=== PATIENT | female | born 1940 | race Caucasian/White ===

== ENCOUNTER 2025-03-03 14:00 | Outpatient (RCR) | payer MEDICARE, SELFPAY ==
--- NOTE | 2024-12-07 08:39 | OPREHPOC ---
Outpatient Therapy Plan of Care This is a Multidisciplinary Plan of Care that may contain components documented by all disciplines (PT, OT, and ST.) PT Problem 1 PT Problem #1 Knowledge Deficit PT Goal 1 Goal / Goal Update 1. Pt to be IND with issued HEP. Target Visit 10 PT Problem 2 PT Problem #2 Impaired Range of Motion PT Goal 1 Goal / Goal Update 1. Pt to demonstrate hip extension to 10 deg to improve stride length. Target Visit 10 PT Problem 3 PT Problem #3 Impaired Gait PT Goal 1 Goal / Goal Update 1. Pt to improve 2 min walk distance from 90ft to 250ft. 2. Pt to ambulate on level ground without AD. 3. Pt to ambulate 5 steps with single UE support to be able to enter her home IND. Target Visit 10 PT Problem 4 PT Problem #4 Impaired Strength PT Goal 1 Goal / Goal Update 1. Pt to improve global hip strength to 4+/5 Target Visit 10
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
--- NOTE | 2024-12-21 10:43 | PCPTNOTE ---
Patient was canceled this date due to therapist being out of clinic with illness.
--- NOTE | 2024-12-23 09:06 | PCPTNOTE ---
Patient canceled this date due to falling and wanting to heal.
--- NOTE | 2025-01-05 10:09 | OPREHPOC ---
Outpatient Therapy Plan of Care This is a Multidisciplinary Plan of Care that may contain components documented by all disciplines (PT, OT, and ST.) PT Problem 1 PT Problem #1 Knowledge Deficit PT Goal 1 Goal / Goal Update 1. Pt to be IND with issued HEP. 01/05/25: 1. met Target Visit 10 Progress Met PT Problem 2 PT Problem #2 Impaired Range of Motion PT Goal 1 Goal / Goal Update 1. Pt to demonstrate hip extension to 10 deg to improve stride length. 01/05/25: 1. progressing to 0 deg Target Visit 10 Progress Partially Met PT Problem 3 PT Problem #3 Impaired Gait PT Goal 1 Goal / Goal Update 1. Pt to improve 2 min walk distance from 90ft to 250ft. 2. Pt to ambulate on level ground without AD. 3. Pt to ambulate 5 steps with single UE support to be able to enter her home IND. 01/05/25: 1. progressing to 200ft 2. not progressing 3. progressing Target Visit 10 Progress Partially Met PT Problem 4 PT Problem #4 Impaired Strength PT Goal 1 Goal / Goal Update 1. Pt to improve global hip strength to 4+/5 01/05/25: 1. progressing Target Visit 10
--- NOTE | 2025-01-05 10:09 | PTOPPROG ---
Assessment and note entered by Evelina Wilson, PT, DPT Evaluation Information Assessment Status Progress Diagnosis L below knee amputation ICD-10 Condition Codes (PT) Difficulty Walking R26.2,Abnormalities of gait and mobility R26.9,Encounter for other orthopedic aftercare Z47.89 Other ICD-10 Condition Codes ( Z89.512 PT) Onset 05/13/24 Subjective Information Pt has recently received cortisone injections in both of her knees, her pain has limited how much she can tolerate in standing while in therapy. Pain has limited her standing and walking tolerance overall. She had one fall while getting in and out of the shower without injury. Assessment PT Clinical Summary Pt presents to therapy today for her progress report following 8 visits of skilled therapy a traumatic L BKA. Her therapy progress up to this point has been limited by severe rodrigo knee pain, pt just received injections to aid with pain management. She demonstrates improved hip flexor ROM and hip flexion strength but ROM and strength are still decreased from expected. She has been able to progress her wear time but is not up to a full days worth of wear yet. Continuation of skilled therapy services are indicated to address the deficits noted above, for gait and stair training, and to progress to functional independence. Plan of Care Interventions Check Out for Orthotic/Prosthetic,Electrical Stimulation,Gait Training,Manual Therapy,Neuro Re- education,Patient/Caregiver Education,Prosthetic Training,Therapeutic Activities,Therapeutic Exercise PT Services Indicated Yes Treatment Frequency and 2x/wk for 10 visits Duration These treatments will address the objective and functional deficits as defined above. The patient will be advanced safely and appropriately in order for the patient to progress towards his/her prior level of function. Additional exercises will be introduced and as well as a comprehensive home exercise program upon discharge, if needed, ?to ensure carryover of functional gains achieved in the clinic. This treatment plan has been reviewed and agreement upon by the patient.
--- NOTE | 2025-02-08 10:01 | PCPTNOTE ---
Patient called to cancel due to her being ill.
--- NOTE | 2025-02-10 09:53 | PCPTNOTE ---
Patient called and cancelled this date due to her being ill. She is unable to drive.
--- NOTE | 2025-02-15 11:11 | OPREHPOC ---
Outpatient Therapy Plan of Care This is a Multidisciplinary Plan of Care that may contain components documented by all disciplines (PT, OT, and ST.) PT Problem 1 PT Problem #1 Knowledge Deficit PT Goal 1 Goal / Goal Update 1. Pt to be IND with issued HEP. 01/05/25: 1. met 02/15/25: 1. met Target Visit 10 Progress Met PT Problem 2 PT Problem #2 Impaired Range of Motion PT Goal 1 Goal / Goal Update 1. Pt to demonstrate hip extension to 10 deg to improve stride length. 01/05/25: 1. progressing to 0 deg 02/15/25: 1. progressing to 5 deg Target Visit 10 Progress Partially Met PT Problem 3 PT Problem #3 Impaired Gait PT Goal 1 Goal / Goal Update 1. Pt to improve 2 min walk distance from 90ft to 250ft. 2. Pt to ambulate on level ground without AD. 3. Pt to ambulate 5 steps with single UE support to be able to enter her home IND. 01/05/25: 1. progressing to 200ft 2. not progressing 3. progressing 02/15/25: 1. progressing to 215ft 2. progressing 3. progressing Target Visit 10 Progress Partially Met PT Problem 4 PT Problem #4 Impaired Strength PT Goal 1 Goal / Goal Update 1. Pt to improve global hip strength to 4+/5 01/05/25: 1. progressing 02/15/25: 1. progressing Target Visit 10
--- NOTE | 2025-02-15 11:12 | PTOPPROG ---
Assessment and note entered by Evelina Wilson, PT, DPT Evaluation Information Assessment Status Progress Diagnosis L below knee amputation ICD-10 Condition Codes (PT) Difficulty Walking R26.2,Abnormalities of gait and mobility R26.9,Encounter for other orthopedic aftercare Z47.89 Other ICD-10 Condition Codes ( Z89.512 PT) Onset 05/13/24 Subjective Information Pt states she feels like she had a set back. Does not feel like her prothesis fits properly. Is also getting a bruise on her L knee. Has not been using an AD around her home for the last week. Assessment PT Clinical Summary Pt presents to therapy today for her progress report following 15 visits of skilled therapy to treat the deficits related to a traumatic L BKA. She demonstrates improved hip flexor ROM and hip flexion strength and glute strength is still decreased from expected. She has been able to wear her prosthesis all day and at times is ambulating without an AD. Continuation of skilled therapy services are indicated to address the deficits noted above, for gait and stair training, to improve hip strength, and to progress to functional independence. Plan of Care Interventions Check Out for Orthotic/Prosthetic,Electrical Stimulation,Gait Training,Manual Therapy,Neuro Re- education,Patient/Caregiver Education,Prosthetic Training,Therapeutic Activities,Therapeutic Exercise PT Services Indicated Yes Treatment Frequency and 2x/wk for 8 visits Duration These treatments will address the objective and functional deficits as defined above. The patient will be advanced safely and appropriately in order for the patient to progress towards his/her prior level of function. Additional exercises will be introduced and as well as a comprehensive home exercise program upon discharge, if needed, ?to ensure carryover of functional gains achieved in the clinic. This treatment plan has been reviewed and agreement upon by the patient.
== END 2025-03-06 23:59 | disposition home or self-care (01) ==
LOC: ANHGOSHPT 14:00
DX: Z89.512 Acquired absence of left leg below knee (principal)
CPT/HCPCS: 97110; 97116; 97140; 97161; 97530; 97761

== ENCOUNTER 2025-03-14 13:15 | Outpatient (RCR) | payer MEDICARE, SELFPAY ==
--- NOTE | 2025-03-14 13:52 | OPREHPOC ---
Outpatient Therapy Plan of Care This is a Multidisciplinary Plan of Care that may contain components documented by all disciplines (PT, OT, and ST.) PT Problem 1 PT Problem #1 Knowledge Deficit PT Goal 1 Goal / Goal Update 1. Pt to be IND with issued HEP. 01/05/25: 1. met 02/15/25: 1. met Target Visit 10 Progress Met PT Problem 2 PT Problem #2 Impaired Range of Motion PT Goal 1 Goal / Goal Update 1. Pt to demonstrate hip extension to 10 deg to improve stride length. 01/05/25: 1. progressing to 0 deg 02/15/25: 1. progressing to 5 deg Target Visit 10 Progress Met PT Problem 3 PT Problem #3 Impaired Gait PT Goal 1 Goal / Goal Update 1. Pt to improve 2 min walk distance from 90ft to 250ft. 2. Pt to ambulate on level ground without AD. 3. Pt to ambulate 5 steps with single UE support to be able to enter her home IND. 01/05/25: 1. progressing to 200ft 2. not progressing 3. progressing 02/15/25: 1. progressing to 215ft 2. progressing 3. progressing Target Visit 10 Progress Met PT Problem 4 PT Problem #4 Impaired Strength PT Goal 1 Goal / Goal Update 1. Pt to improve global hip strength to 4+/5 01/05/25: 1. progressing 02/15/25: 1. progressing Target Visit 10 Progress Partially Met
--- NOTE | 2025-03-14 13:52 | PTOPDC ---
Assessment and note entered by Willis Robertson, PT Evaluation Information Assessment Status Progress Diagnosis L below knee amputation ICD-10 Condition Codes (PT) Difficulty Walking R26.2,Abnormalities of gait and mobility R26.9,Encounter for other orthopedic aftercare Z47.89 Other ICD-10 Condition Codes ( Z89.512 PT) Onset 05/13/24 Subjective Information Patient reports that she has been having trouble with the fitting of her prosthetic. She has been using 3 socks right now to help it fit correctly. Fells that her gait is off a little but she struggles at times with the prosthetic fitting. Reports that from a functional and pain perspective she is feeling fantastic. She is in a wheelchair when she is not using her prosthetic. She will still occasionally get some phantom pain in the left foot. She was told that no one should mess with her prosthetic outside of her scale technician . Reported Pain Level Pain Score 0: Self Report Pain Score 0: Self Report Assessment PT Clinical Summary Patient has met all therapy and personal goals for therapy at this time. She has made significant improvement in gait and stability. She plans to follow up with [facility] to adjust and refit prosthetic and she feel she will be 100% after that. Discharging per patient request this date. No concerns with discharge. Plan of Care PT Services Indicated Yes
== END 2025-03-14 14:42 | disposition home or self-care (01) ==
LOC: ANHGOSHPT 13:15
DX: Z47.81 Encounter for orthopedic aftercare following surgical amputation (principal); Z89.512 Acquired absence of left leg below knee
CPT/HCPCS: 97110; 97116; 97530